=== PATIENT | female | born 1955 | race Caucasian/White ===

== ENCOUNTER 2018-07-07 12:14 | Day surgery (SDC) | payer OTHER ==
[2018-07-07] MEDS ORDERED: PROPOFOL 60 ML (14:23)
[2018-07-07] MEDS ORDERED: LIDOCAINE 2% (SDV) 5 ML INJ (14:23)
[2018-07-07] MEDS ORDERED: FENTAnyl 50 MCG/ML VIAL IV (15:00)
[2018-07-07] MEDS ORDERED: ONDANSETRON 4 MG INJ IV (15:00)
== END 2018-07-07 16:47 | disposition home or self-care (01) ==
LOC: GIL 12:14
DX: Z12.11 Encounter for screening for malignant neoplasm of colon (principal); K64.8 Other hemorrhoids; I10 Essential (primary) hypertension; E78.5 Hyperlipidemia, unspecified; E66.01 Morbid (severe) obesity due to excess calories; Z68.41 Body mass index [BMI] 40.0-44.9, adult
CPT/HCPCS: 45378